=== PATIENT | female | born 1955 | race Caucasian/White ===

== ENCOUNTER 2020-01-13 21:53 | Emergency (ER) | payer BC, SELFPAY ==
[2020-01-13 21:54] VITALS: BP 146/93; PULSE 66; RESP 16; TEMP 36.4; O2SAT 99; BMI 18.1
--- NOTE | 2020-01-13 22:14 | CT_ITS ---
STUDY: CT ABDOMEN AND PELVIS WITH CONTRAST REASON FOR EXAM: Female, 64 years old. Lower abdominal pain and nausea. Remote history of Hodgkin''s lymphoma treated with chemotherapy and radiation. TECHNIQUE: Transaxial images were obtained from the dome of the diaphragm to the symphysis pubis with oral contrast. 100 cc ISOVUE-370 was administered. Sagittal and coronal images were reconstructed. Individualized dose optimization techniques were used for this CT. COMPARISON: PET CT 03/28/2010. CTA chest 03/12/2014. FINDINGS: Partially visualized lower chest: Cluster of very small subpleural tree-in-bud nodules anterior aspect left lung base. Otherwise unremarkable. Liver: Hepatomegaly with enlargement particularly of the right lobe. This is similar to previous. No focal lesions. Gallbladder and biliary tree: Several small gallstones within the gallbladder. No distention or adjacent inflammation. No biliary ductal dilation. Pancreas: No pancreatic lesions or inflammation. Spleen: Normal size, no splenic lesions. Adrenal glands: No concerning masses. Kidneys and ureters: No hydronephrosis or renal stones. No concerning masses. No ureteral dilation. Bowel: Appendix not identified. No evidence of appendicitis. No obstruction or inflammation of the bowel. Urinary bladder: No stones or wall thickening. Reproductive: Status post hysterectomy. Bilateral ovaries are unremarkable. Vascular: No abdominal aortic aneurysm. Patent portal and mesenteric veins. Retroperitoneal and peritoneal spaces: No ascites or free air. No retroperitoneal lesions. Osseous: No acute osseous abnormality. Abdominal and pelvic wall: No concerning findings. CT/Abdomen/Pelvis WITH Contrast IMPRESSION: No acute findings. Hepatomegaly and cholelithiasis chronic and unchanged. Very small tree-in-bud nodules anterior aspect left lung base. Likely sequela of infection or inflammation. Electronically Signed: Huy Abreu, at 0:27 EDT Tel , Service support ,
[2020-01-13] MEDS: 0.9% Normal Saline 1,000 ML 1000 ML IV (22:58)
[2020-01-13 23:12] LABS: Absolute Lymphocyte Count 1.43 X10^3/uL (0.83-4.51); Absolute Neutrophil Count 2.5 X10^3/uL (2.0-7.7); Basophil# 0.06 X10^3/uL; Basophil% 1.2 % (0-1); Eosinophil# 0.59 X10^3/uL; Eosinophils% 11.8 % (0-5); Hematocrit 39.5 % (37-47); Hemoglobin 13.3 g/dL (12.0-15.0); Lymphocyte # 1.43 X10^3/ul (4.0); Lymphocyte % 28.7 % (19-41); Mean Corp Hgb Conc 33.7 g/dL (32-36); Mean Corpuscular Hgb 29.8 pg (27.0-32.0); Mean Corpuscular Volume 88.6 fL (81-99); Mean Platelet Vol. 9.8 fl (6.2-12.0); Monocyte# 0.36 X10^3/uL; Monocyte% 7.2 % (0-10); NRBC Flagged by Analyzer 0 % (0-5); Neutrophil # 2.53 X10^3/uL (2.7-7.7); Neutrophil % 50.9 % (47-70); Platelet Count 233 K/mm3 (150-450); RBC Distribution Width CV 13.2 % (11.6-14.6); RBC Distribution Width SD 43.2 fl (35.1-43.9); Red Blood Count 4.46 M/mm3 (4.2-5.4)
[2020-01-13] MEDS: Ondansetron 4 MG/2 ML Vial IV (23:14)
[2020-01-13] MEDS: Morphine 4 MG/ML Syringe IV (23:14)
[2020-01-13 23:24] LABS: ALB/GLOB Ratio 1.3 RATIO (0.9-2.4); AST(SGOT) 19 U/L (15-37); Alanine Aminotransfer ALT/SGPT 18 U/L (13-56); Albumin, Serum 3.9 g/dL (3.2-5.0); Alkaline Phosphatase 83 U/L (45-117); Anion Gap 4 (5-15); BUN 9 mg/dL (7-18); BUN/Creat Ratio 11.2 RATIO (10-20); Calcium,Total 8.8 mg/dL (8.5-10.1); Chloride 108 mmol/L (98-107); Creatinine, Serum 0.81 mg/dL (0.55-1.02); EST Glomerular Filtration Rate 76 mL/min (>60); Est Glom Filt Rate - Afr Amer 92 mL/min (>60); Estimated Creatinine Clearance 53.98 ml/min; Globulin 3.1 g/dL (2.2-4.2); Glucose 103 mg/dL (74-106); Lipase 155 U/L (73-393); Potassium 4.2 mmol/L (3.5-5.1); Sodium Level 141 mmol/L (136-145)
[2020-01-13 23:34] LABS: Color, Urine Yellow (Yellow); Glucose, Dipstick Normal (Normal); Ketone-Dipstick Negative (Negative); Leukocyte Esterase-Dipstick 100 /ul (Negative); Nitrite-Dipstick Negative (Negative); Occult Blood-Urine Negative /ul (Negative); Protein-Dipstick Negative (Negative); Urine Bilirubin Dipstick Negative (Negative); Urine Clarity Clear (Clear); Urine Urobilinogen Normal (Normal)
[2020-01-13 23:35] LABS: Bacteria 0 SEEN /hpf (None Seen); Mucous, Urine 0 SEEN /hpf (<or=2+); Red Blood Cells-Urine 0 SEEN /hpf (0-5); Squamous Epithelial Cells - UA 0 SEEN /hpf (5-10)
--- NOTE | 2020-01-13 23:45 | ED.VISSUMM ---
- ER Visit Summary Date of Service: 01/13/20 Chief Complaint: Abdominal pain History of Present Illness: The patient is a 64 F who presents with abdominal pain that began today. Patient states the pain is over her upper abdomen. Patient states it is under her rib cage. Patient states pain is constant and sharp. Patient states the pain is better when she stands and bends over. Patient admits to nausea but denies any vomiting. Patient denies any diarrhea, melena, or hematochezia. Patient denies any dysuria or hematuria. Patient denies any fevers or chills. Patient denies any chest pain or shortness of breath. Physical Examination: Vital signs are stable. Patient is afebrile. Patient is in no acute distress. Oral mucosa is pink and moist. Neck is supple. Trachea is midline. There is no JVD. Heart was regular rate and rhythm. Lungs are clear and equal bilaterally. Abdomen is soft. Bowel sounds are normal. There is some tenderness over the upper abdomen. There is no rebound or guarding noted. Cranial nerves II through XII are intact. There are no focal motor or sensory deficits noted. Extremities are intact. There is no calf tenderness or edema. Test Results: CBC and comprehensive metabolic profile were obtained and were within normal limits. Urinalysis was obtained. Leukocyte esterase was 100. There were 5-10 white blood cells. The remainder was within normal limits. CT scan of the abdomen and pelvis was obtained. There is no acute intra-abdominal process. There is chronic hepatomegaly and cholelithiasis which is unchanged. These were interpreted by the radiologist and reviewed by myself. Emergency Department Course and Treatment: Patient was given IV fluids, morphine, and Zofran. She was feeling better on reevaluation. Patient was instructed to eat a bland diet. Patient was instructed to follow-up with her primary care physician in 5 to 7 days. Patient understood and was agreeable with the plan. All questions were answered. Disposition: Discharge home Impression: Abdominal pain This note was generated with [employer] dictation software. It may contain incorrect words, spelling, and punctuation that were not noted in review of the chart prior to signing ED Disposition - Plan for ED Patient: Disposition: Home or Assisted Living Diagnosis: Abdominal pain Instructions: ED Abdominal Pain Unkn Cause Fem Referrals: Care Physician,No Primary [Primary Care Provider] - 5-7 Days
[2020-01-13 23:48] LABS: White Blood Cells 5-10 SEEN /hpf (0-5)
[2020-01-14 00:44] VITALS: BP 110/58; PULSE 59; RESP 16; O2SAT 100
== END 2020-01-14 00:45 | disposition home or self-care (01) ==
PROVIDERS: Emergency Provider Emergency Medicine
DX: R10.10 Upper abdominal pain, unspecified (principal)
CPT/HCPCS: 74177; 80053; 81001; 83690; 85025; 96361; 96374; 96375; 99285; J7030; Q9967; A4216; J2405

== ENCOUNTER 2020-08-31 13:53 | Outpatient (RCR) | payer BC, SELFPAY ==
[2020-08-31] MEDS: COVID-19 VACC, MRNA(PFIZER)/PF 30 MCG/0.3 ML SYRINGE IM (07:26)
[2020-09-21] MEDS: COVID-19 VACC, MRNA(PFIZER)/PF 30 MCG/0.3 ML SYRINGE IM (07:01)
== END 2020-08-31 23:59 ==
LOC: IMMUN 13:53
PROVIDERS: Referring Provider Family Medicine; Visit Provider Family Medicine
DX: Z23 Encounter for immunization (principal)
CPT/HCPCS: 0001A; 0002A; 91300